=== PATIENT | male | born 1990 | race Caucasian/White ===

== ENCOUNTER 2023-08-24 20:37 | Emergency (ER) | payer OTHER, SELFPAY ==
[2023-08-24 20:41] VITALS: BP 155/89
--- NOTE | 2023-08-25 01:31 | ED.GENMED ---
History of Present Illness
<MAIRA Celestin - Last Filed: 08/25/23 06:26>
General
Chief Complaint: Skin Problem
Source: patient
Exam Limitations: none
Time Seen by Provider: 08/25/23 00:39
Travel History
Have you had any contact with someone who has COVID-19?: No
Do you have any symptoms of coronavirus? Fever > 100 degrees, chills, cough, shortness of breath, sore throat, loss of taste or smell, muscle aches, or headache?: No
History of Present Illness
History of Present Illness:
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 Pt was at work when he cut himself with sheet metal. Pt states he initially went to
urgent care for the laceration and was told to visit the ER instead. He had a hand xray performed there which he states was normal. States his tetanus is up to date. No other injuries noted. Denies numbness or tingling.
Review of Systems
<MAIRA Celestin - Last Filed: 08/25/23 06:26>
Review of Systems
Allergies reviewed?: Yes
All Other Systems: ROS reviewed and negative except as documented in HPI and ROS
Constitutional: Reports no symptoms
EENT: Reports no symptoms
Respiratory: Reports no symptoms
Cardiac: Reports no symptoms
ABD/GI: Reports no symptoms
: Reports no symptoms
Musculoskeletal: Reports no symptoms
Skin: Reports other (laceration to L index finger)
Neurological: Reports no symptoms
Endocrine: Reports no symptoms
Hematologic/Lymphatic: Reports no symptoms
Psychiatric: Reports no symptoms
Phy Exam
<MAIRA Celestin - Last Filed: 08/25/23 06:26>
General Physical Exam
General Presentation: well appearing and no apparent distress
General age: appears stated age
General Skin: warm and dry
General Habitus: normal
General Mental: alert
General Hydration: appears well hydrated
Cardiovascular Exam
Cardiovascular Exam: regular rate/rhythm, no edema, no gallop and no murmur
Pulmonary Exam
Pulmonary Exam: lungs clear, no respiratory distress, no rales, no crackles, no rhonchi, no wheezing and no cough
Neurological Exam
Neurological Exam: alert and oriented x3
Musculoskeletal Exam
Musculoskeletal Exam: full ROM (L hand and L index finger) and neuro vasc intact (L index finger)
Skin Exam
Skin Exam: normal color, warm/dry and laceration (2.5 cm vertical laceration to the volar aspect of index finger at the PIP joint)
Course
<MAIRA Celestin - Last Filed: 08/25/23 06:26>
Orders/Labs/Results
Orders:
Orders
08/25/23 01:53
Cephalexin Monohydrate [Keflex] 500 mg PO NOW STA
Ibuprofen [Motrin] 800 mg PO NOW STA
Vital Signs
Initial and Last Documented VS:
Initial Vital Signs
Temp Pulse Resp BP Pulse Ox
98.6 F 99 18 155/89 99
08/24/23 20:41 08/24/23 20:41 08/24/23 20:41 08/24/23 20:41 08/24/23 20:41
Last Documented Vital Signs
Temp Pulse Resp BP Pulse Ox
98.6 F 88 16 146/74 98
08/24/23 20:41 08/25/23 02:00 08/25/23 02:00 08/25/23 02:00 08/25/23 02:00
<Janee Burton DO - Last Filed: 08/25/23 01:58>
Orders/Labs/Results
Orders:
Orders
08/25/23 01:53
Cephalexin Monohydrate [Keflex] 500 mg PO NOW STA
Ibuprofen [Motrin] 800 mg PO NOW STA
Vital Signs
Initial and Last Documented VS:
Initial Vital Signs
Temp Pulse Resp BP Pulse Ox
98.6 F 99 18 155/89 99
08/24/23 20:41 08/24/23 20:41 08/24/23 20:41 08/24/23 20:41 08/24/23 20:41
Last Documented Vital Signs
Temp Pulse Resp BP Pulse Ox
98.6 F 88 16 146/74 98
08/24/23 20:41 08/25/23 02:00 08/25/23 02:00 08/25/23 02:00 08/25/23 02:00
Procedures
<MAIRA Celestin - Last Filed: 08/25/23 06:26>
Laceration Closure
Left Volar Second Finger:
Status of Wound: clean
Size of Wound in cm: 2.5
Description of Wound Edges: sharp
Preparation: cleaned with saline and cleaned with Betadine
Anesthesia: 1% Lidocaine with epi and added Na Bicarb to local
Revision/Debridement: routine- no revision
Wound exploration: explored to base- no FB and no tendon involvement
Type of Closure: single layer closure
Skin Closure Material: 4-0 prolene
Number of sutures: 7
<MAIRA Celestin - Last Filed: 08/25/23 06:26>
MDM/Problems Addressed
Differential Diagnosis Includes:
left index finger laceration
MDM/Problems Addressed:
32 year old male who presents with laceration to L index finger.
<MAIRA Celestin - Last Filed: 08/25/23 06:26>
*Critical Care Note
Total Time (30-74mins, 75-104mins- exclusive of procedures): Not Applicable
ED Attending Note
<MAIRA Celestin - Last Filed: 08/25/23 06:26>
-
Portions of this chart may have been created with voice recognition software.� Occasional wrong word or��sound alike� substitutions may have occurred due to the inherent limitations of voice recognition software.
<Janee Burton DO - Last Filed: 08/25/23 01:58>
ED Attending Note
Patient seen and examined by attending physician: Yes
I performed the substantive portion of visit, reviewed & personally made and approve the management plan that is documented in note by myself or PK.: Yes
I performed a history and physical exam of patient and discussed management with resident, I reviewed resident's note and agree with documented findings and plan of care.: Yes
ED Attending Note:
This is a 32-year-old [id number] gentleman who cut his left index digit on sheet-metal at home. Injury occurred tonight.
He is unsure as to his last tetanus booster.
He complains of local pain left anterior index digit along with laceration. Mild bleeding initially which stopped promptly with local pressure.
He denies weakness or numbness.
PHYSICAL EXAMINATION:
General: no apparent distress, not acutely ill
Neuro: alert and oriented. no focal neurological deficits
Psychiatric: well kept. interactive and cooperative
Musculoskeletal: [Left index digit anterolateral aspect has a linear 2.5 cm laceration that is subcutaneous in depth. No active bleeding. Full digit range of motion without difficulty. Distal sensation and strength intact.]
Wound is full-thickness but overall superficial, explored to base, no foreign body. Full range of motion without difficulty. No indication for x-ray.
Will plan for suture repair.
Will initiate Keflex for infection prevention and give ibuprofen for pain.
Patient is up-to-date with Tdap.
As he works with his hands, installing pools, recommend he remain out of work for at least the next 5 to 6 days and a work note has been provided.
Follow-up with PCP next week for recheck and recommend suture removal by PCP in 7 to 10 days.
Routine wound care discussed.
Discharge Plan
Departure
Patient Disposition: Home (Routine Discharge)
Date of Disposition: 08/25/23
Time of Disposition: 01:53
Patient with high blood pressure during this ER visit?: Yes
Condition: Good
Discharge Problem:
laceration left index digit
Instructions: Laceration Repair With Stitches ED
Prescriptions:
New
cephalexin 500 mg capsule
1,000 mg PO BID 7 Days Qty: 28 0RF
ibuprofen 800 mg tablet
800 mg PO QIDPRN PRN (Reason: pain, fever) Qty: 30 0RF
Referrals:
Yifan Cedlilo, DO [Family Provider] - Follow up in 5-7 days
Stand Alone Forms: Return to Work
Interventions
Interventions:
*Risk Screen - Suicide Last Done: 08/24/23 20:41
*General Assessment Last Done: 08/24/23 20:41
*Neglect/Abuse Screening Last Done: 08/24/23 20:41
ED- Fall Risk Assessment Last Done: 08/24/23 22:48
*ED COVID-19 Vaccine History Last Done: 08/25/23 02:32
*Nursing Disposition Last Done: 08/25/23 02:10
ED-Skin Assessment Last Done: 08/24/23 23:55
Discharge Date and Time
Discharge Date/Time: 08/25/23 02:10
Print Language: LITHUANIAN
[2023-08-25 02:00] VITALS: BP 146/74
== END 2023-08-25 02:10 | disposition home or self-care (01) ==
LOC: EMR 20:37
PROVIDERS: EMERGENCY PHYSICIAN Emergency Medicine; FAMILY PHYSICIAN Family Medicine
DX: S61.211A Laceration without foreign body of left index finger without damage to nail, initial encounter (principal); W26.8XXA Contact with other sharp object(s), not elsewhere classified, initial encounter; R03.0 Elevated blood-pressure reading, without diagnosis of hypertension
CPT/HCPCS: 99283; 12001

== ENCOUNTER 2023-11-11 20:16 | Emergency (ER) | payer OTHER, SELFPAY ==
[2023-11-11 20:19] VITALS: BP 157/90
--- NOTE | 2023-11-11 21:24 | ED.GENMED ---
History of Present Illness
General
Chief Complaint: Abdominal Pain
Source: patient
Exam Limitations: none
Time Seen by Provider: 11/11/23 20:35
History of Present Illness
History of Present Illness:
This s a 33 year old male that comes in with c/o left sided abd pain. States that this started about 5 days ago but has continued to get worse. States that today they went to and was told to come to the ER. States that the pain is worse today
then before. States that he vomited yesterday and is nauseated. Denies any fever, chills, chest pain, SOB, diarrhea, headache, dizziness, urinary burning.
Past History
Past History
ED Past Medical History: HTN
ED Past Surgical History: None
Social History
Tobacco: Smoker
Alcohol: None
Personal: Single
Living: with family
Review of Systems
Review of Systems
All Other Systems: ROS reviewed and negative except as documented in HPI and ROS
Constitutional: Reports no symptoms; Denies fever or chills
EENT: Reports no symptoms
Respiratory: Reports no symptoms; Denies cough or trouble breathing
Cardiac: Reports no symptoms; Denies chest pain
ABD/GI: Reports abdominal pain, nausea and vomiting; Denies diarrhea
: Reports no symptoms; Denies dysuria, frequency or urgency
Musculoskeletal: Reports no symptoms
Skin: Reports no symptoms
Neurological: Reports no symptoms; Denies dizzy or headache
Psychiatric: Reports no symptoms
Phy Exam
General Physical Exam
General Presentation: well appearing and no apparent distress
General age: appears stated age
General Skin: warm and dry
General Habitus: normal
General Mental: alert
General Hydration: appears well hydrated
ENT Exam
ENT Exam: TM's normal, pharynx normal and neck supple
Eye Exam
Eye Exam: EOMI
Cardiovascular Exam
Cardiovascular Exam: regular rate/rhythm, no edema, no murmur and normal peripheral pulses
Pulmonary Exam
Pulmonary Exam: lungs clear, no respiratory distress, no rales, chest non tender, no crackles, no rhonchi, no wheezing and no cough
Gastrointestinal Exam
Gastrointestinal Exam: normal bowel sounds, soft, no organomegaly, no pulsatile mass, non distended and tender (Left sided abd tenderness with palpation)
Musculoskeletal Exam
Musculoskeletal Exam: full ROM and no edema
Skin Exam
Skin Exam: normal color, warm/dry, no rash and no petechia
Psychiatric Exam
Psychiatric Exam: normal mood/affect
Course
Orders/Labs/Results
Orders:
Orders
11/11/23 21:23
IV Insert/Care/Rem.- Treatment PRN
0.9% Sodium Chloride 1000 ml [Nss] 1,000 ml IV BOLUS
11/11/23 21:24
Ketorolac [Toradol] 30 mg IV NOW STA
11/11/23 21:32
CT Abd/pelvis W Iv Cont Urgent
Comment:
Reason For Exam: Left sided abd pain
Ondansetron Injectable [Zofran] 4 mg IV NOW STA
11/11/23 21:38
Complete Blood Count/With Diff Urgent
Comprehensive Metabolic Panel Urgent
Lipase Urgent
Urinalysis Reflex To Culture Urgent
Date Specimen was Collected: 11/11/23
Time Specimen was Collected: 21:36
Abnormal Lab Results
11/11/23
21:38
RBC 4.34 L 10^6/uL
(4.70-6.10)
Hgb 12.5 L g/dL
(13.0-18.0)
Hct 36.7 L %
(39.0-52.0)
Absolute Lymphs (auto) 4.0 H 10^3/uL
(1.2-3.4)
11/11/23 21:38
11/11/23 21:38
H/H slighty low. Otherwise normal labs. Lipase normal at 63, Urine negative for infection or blood
Vital Signs
Initial and Last Documented VS:
Initial Vital Signs
Temp Pulse Resp BP Pulse Ox
98.2 F 62 18 157/90 100
11/11/23 20:19 11/11/23 20:19 11/11/23 20:19 11/11/23 20:19 11/11/23 20:19
Last Documented Vital Signs
Temp Pulse Resp BP Pulse Ox
98.2 F 62 18 157/90 100
11/11/23 20:19 11/11/23 20:19 11/11/23 20:19 11/11/23 20:19 11/11/23 20:19
MDM/Problems Addressed
Differential Diagnosis Includes:
Diverticulitis, Renal calculus
MDM/Problems Addressed:
This is a 33 year old male that comes in with c/o left sided abd pain. States that this started 5 days ago and is getting worse.
Will check labs, CT scan, Medicate for pain and nausea and give IV fluids.
Back into see patient. Reviewed CT scan. Explained that there is no inflammatory process but mild constipation. There are a few reactive lymph nodes seen. Patient to use Tylenol or Ibuprofen for pain. Patient to follow up with the family doctor.
Increase his water intake to 8-8oz glasses daily. Return with fever, increased or changing pain.
Chronic conditions affecting care: HTN
Acute Exacerbation and/or Progression of Chronic Illness:
NA
*Radiology
Radiology exam reviewed: radiology read reviewed (CT-Mild colonic stool burden without evidence of obstruction. There are a few prominent upper abdominal lymph nodes measuring up to 1.1cm in short axis which are likely reactive. Mildly hyperdense
fluid within the urinary bladder which may be sequelae o dehydration although consider correlation with) and all reviewed NAD by ED Provider (CT cont- urinalysis for possible infection. )
*Pulse Oximetry
Patient hypoxic: no
*EKG
Interpreted by ED Provider?: NA
Rate: EKG- N/A
*Immunology Teacher Interpretation
Rate: Immunology Teacher- N/A
*Critical Care Note
Total Time (30-74mins, 75-104mins- exclusive of procedures): Not Applicable
ED Attending Note
-
Portions of this chart may have been created with voice recognition software.� Occasional wrong word or��sound alike� substitutions may have occurred due to the inherent limitations of voice recognition software.
Discharge Plan
Departure
Patient Disposition: Home (Routine Discharge)
Date of Disposition: 11/11/23
Time of Disposition: 23:17
Patient with high blood pressure during this ER visit?: Yes
Condition: Good
Covid-19: Not Applicable
Discharge Problem:
Abdominal pain
Instructions: Abdominal Pain, BLOOD PRESSURE
Prescriptions:
No Action
cephalexin 500 mg capsule
1,000 mg PO BID 7 Days Qty: 28 0RF
ibuprofen 800 mg tablet
800 mg PO QIDPRN PRN (Reason: pain, fever) Qty: 30 0RF
Referrals:
Paola Mcmanus DO [Family Provider] - Call in 1-3 days for appt
Activity Restrictions/Additional Instructions:
As discussed,your blood work is normal. Your CT shows mild constipation. There are a few reactive Lymph nodes but there is no obvious reason for this. Please follow up with the family doctor for recheck. Please increase your water intake to 8-8oz
glasses daily. You have been given a bottle of Magnesium Citrate. This will work form the top down. Please drink the entire bottle. It may take up to 6 hours to work and can cause abdominal cramping. Tylenol or Ibuprofen for pain. IF YOU HAVE
INCREASED OR CHANGING PAIN, OR YOU HAVE ANY OTHER CONCERNS PLEASE RETURN TO THE EMERGENCY ROOM
Interventions
Interventions:
*Risk Screen - Suicide Last Done: 11/11/23 20:19
*General Assessment Last Done: 11/11/23 20:19
*Neglect/Abuse Screening Last Done: 11/11/23 20:19
*ED COVID-19 Vaccine History Last Done: 11/11/23 20:35
TQ-Gzbqwd-Vhkwntrjxr Assessment Last Done: 11/11/23 21:35
Discharge Date and Time
Print Language: LATVIAN
[2023-11-11 21:25] VITALS: BMI 28.9
[2023-11-11] MEDS: NSS 1000 IV (21:40)
[2023-11-11] MEDS: TORADOL 30 MG IV (21:40)
[2023-11-11] MEDS: ZOFRAN 4 MG IV (21:40)
[2023-11-11 21:51] LABS: Urine Albumin Negative (Neg - Trace); Urine Bilirubin Negative (Negative); Urine Character Clear (Clear); Urine Color Yellow; Urine Glucose Negative (Negative); Urine Ketone Negative (Negative); Urine Leukocyte Negative (Negative); Urine Nitrite Negative (Negative); Urine Occult Blood Negative (Negative); Urine Urobilinogen 1+ (Neg - 1+)
[2023-11-11 22:02] LABS: ALT (SGPT) 20 U/L (0-50); AST (SGOT) 28 U/L (17-59); Albumin 4.6 g/dl (3.5-5.0); Alkaline Phosphatase 103 U/L (38-126); Blood Urea Nitrogen 11 mg/dl (9-20); Calcium 9.6 mg/dl (8.4-10.2); Carbon Dioxide 26 mmol/L (22-30); Chloride 100 mmol/L (98-107); Estimated Creatinine Clearance 107 ml/min; Glucose 90 mg/dl (70-99); Lipase 63 U/L (23-300); Potassium 3.8 mmol/L (3.5-5.1); Sodium 137 mmol/L (135-145); Total Bilirubin 0.3 mg/dl (0.2-1.3); Total Protein 6.8 g/dl (6.3-8.2); eGFR > 60.00
[2023-11-11 22:11] LABS: % Basophils 0.3 % (0-2); % Immature Granulocytes 0.2 % (0-0.5); % Monocytes 5.6 % (1.7-9.3); % Neutrophils 47.9 % (42.2-75.2); Absolute Eosinophils 0.4 10^3/uL (0-0.7); Absolute Monocytes 0.5 10^3/uL (0.1-0.6); Absolute Neutrophils 4.6 10^3/uL (1.4-6.5); Hematocrit 36.7 % (39.0-52.0); Hemoglobin 12.5 g/dL (13.0-18.0); Mean Corp Hgb Conc. 34.1 g/dL (33.0-37.0); Mean Corpuscular Hgb 28.8 pg (27.0-31.0); Mean Corpuscular Volume 84.6 fL (80.0-94.0); Mean Platelet Volume 9.8 fL (7.4-10.4); Nucleated Red Blood Cells % 0 % (-); Platelet Count 265 10^3/uL (130-400); Red Blood Cell Count 4.34 10^6/uL (4.70-6.10); Red Cell Dist. Width 12.9 % (11.5-14.5); White Blood Cell Count 9.6 10^3/uL (4.8-10.8)
[2023-11-11 23:02] VITALS: BP 125/91
[2023-11-11] MEDS: CITROMA 300 ML PO (23:37)
== END 2023-11-11 23:50 | disposition home or self-care (01) ==
LOC: EMR 20:16
PROVIDERS: Clinical Nurse Specialist Family Health; EMERGENCY PHYSICIAN Emergency Medicine; FAMILY PHYSICIAN Family Medicine
DX: R10.9 Unspecified abdominal pain (principal); I10 Essential (primary) hypertension; F17.200 Nicotine dependence, unspecified, uncomplicated
CPT/HCPCS: 99285; 96374; 96375; 96361; 74177; 80053; 81003; 83690; 85025; Q9967